=== PATIENT | male | born 1965 | race Hispanic/Latino ===

== ENCOUNTER 2020-10-02 01:33 | Emergency (ER) | payer OTHER ==
[2020-10-02] MEDS ORDERED: KETOROLAC TROMETHAMINE 60 MG/2 ML VIAL ONE (02:48)
[2020-10-02] MEDS ORDERED: ORPHENADRINE CITRATE 30 MG/ML ML ONE (02:48)
== END 2020-10-02 03:44 | disposition home or self-care (01) ==
LOC: EDH 01:33
DX: M62.838 Other muscle spasm (principal); M54.9 Dorsalgia, unspecified; N50.812 Left testicular pain
CPT/HCPCS: 96372 ×2; 99284; J1885; J2360